=== PATIENT | female | born 1960 | race Asian ===

== ENCOUNTER → 2017-05-11 | Outpatient (CLI) | payer BC ==
[2017-05-11 11:08] LABS: BASOPHILS % 0.7 % (0.0-2.0); EOSINOPHILS % 0.8 % (0.0-5.0); HEMATOCRIT. 38.8 % (36.0-48.0); HEMOGLOBIN. 12.8 g/dL (12.0-16.0); LYMPHOCYTES % 26.6 % (20.0-50.0); MEAN CORPUSCULAR HEMOGLOBIN 29.5 pg (28.0-32.0); MEAN CORPUSCULAR VOLUME 89.2 fL (81.0-99.0); MEAN PLATELET VOLUME 7.1 fl (7.4-10.4); MONOCYTES % 6.4 % (2.0-8.0); NEUTROPHILS % 65.5 % (40.0-76.0); PLATELET 224 x1000/uL (130-400); RED BLOOD CELL COUNT 4.34 mill/uL (4.2-5.4); RED CELL DISTRIBUTION WIDTH 13.3 % (11.6-14.6)
[2017-05-11 11:36] LABS: CARBON DIOXIDE 29 mEq/L (21-32); CHLORIDE 107 mEq/L (98-107); HDL CHOLESTEROL 98 mg/dL (40-59); LDL CHOLESTEROL 117 mg/dL (5-100); PHOSPHORUS 3.1 mg/dL (2.5-4.9); T4 FREE 1.23 ng/dL (0.76-1.46)
[2017-05-11 11:43] LABS: GLUCOSE URINE NEGATIVE (NEGATIVE); KETONES URINE NEGATIVE (NEGATIVE); LEUKOCYTE ESTERASE URINE TRACE (NEGATIVE); NITRITE URINE NEGATIVE (NEGATIVE); OCCULT BLOOD URINE NEGATIVE (NEGATIVE); PH URINE 5.5 (4.5-8.0); PROTEIN URINE NEGATIVE (NEGATIVE); SPECIFIC GRAVITY URINE 1.012 (1.005-1.030); UROBILINOGEN URINE 0.2 E.U./dL (0.2-1.0)
[2017-05-11 11:49] LABS: CLARITY URINE CLEAR (CLEAR); COLOR URINE YELLOW (YELLOW)
[2017-05-12 13:07] LABS: CANCER ANTIGEN 125 14.2 U/mL (0.0-38.1)
== END | disposition home or self-care (01) ==
LOC: LAB 10:08
PROVIDERS: ATTEND Internal Medicine Endocrinology, Diabetes & Metabolism
DX: M85.80 Other specified disorders of bone density and structure, unspecified site (principal); E78.5 Hyperlipidemia, unspecified; N83.209 Unspecified ovarian cyst, unspecified side; R73.9 Hyperglycemia, unspecified
CPT/HCPCS: 36415; 80053; 80061; 81001; 82306; 82378; 83036; 83735; 83970; 84100; 84439; 84443; 85025; 86304; 87086

== ENCOUNTER → 2017-09-29 | Outpatient (CLI) | payer BC ==
[2017-09-29 16:59] LABS: CLARITY URINE CLOUDY (CLEAR); COLOR URINE YELLOW (YELLOW); GLUCOSE URINE NEGATIVE (NEGATIVE); KETONES URINE NEGATIVE (NEGATIVE); LEUKOCYTE ESTERASE URINE TRACE (NEGATIVE); NITRITE URINE NEGATIVE (NEGATIVE); OCCULT BLOOD URINE TRACE (NEGATIVE); PH URINE 7.5 (4.5-8.0); PROTEIN URINE NEGATIVE (NEGATIVE); SPECIFIC GRAVITY URINE 1.012 (1.005-1.030); UROBILINOGEN URINE 0.2 E.U./dL (0.2-1.0)
== END | disposition home or self-care (01) ==
LOC: LAB 16:34
PROVIDERS: ATTEND Internal Medicine Endocrinology, Diabetes & Metabolism
DX: N39.0 Urinary tract infection, site not specified (principal)
CPT/HCPCS: 81001; 87086; 87186

== ENCOUNTER → 2017-12-26 | Outpatient (CLI) | payer BC ==
[2017-12-26 09:17] LABS: BASOPHILS % 0.7 % (0.0-2.0); EOSINOPHILS % 0.5 % (0.0-5.0); HEMOGLOBIN. 13.9 g/dL (12.0-16.0); LYMPHOCYTES % 23.6 % (20.0-50.0); MEAN CORPUSCULAR HEMOGLOBIN 29.6 pg (28.0-32.0); MEAN CORPUSCULAR VOLUME 89.4 fL (81.0-99.0); MEAN PLATELET VOLUME 7.2 fl (7.4-10.4); MONOCYTES % 5.4 % (2.0-8.0); NEUTROPHILS % 69.8 % (40.0-76.0); PLATELET 273 x1000/uL (130-400); RED CELL DISTRIBUTION WIDTH 13.2 % (11.6-14.6)
[2017-12-26 09:49] LABS: CHLORIDE 105 mEq/L (98-107); HDL CHOLESTEROL 85 mg/dL (40-59); LDL CHOLESTEROL 110 mg/dL (5-100); PHOSPHORUS 4.4 mg/dL (2.5-4.9); T4 FREE 1.15 ng/dL (0.76-1.46)
[2017-12-27 09:07] LABS: VITAMIN D 25-OH 35.9 ng/mL (30.0-100.0)
[2017-12-27 13:11] LABS: CANCER ANTIGEN 125 15.7 U/mL (0.0-38.1)
== END | disposition home or self-care (01) ==
LOC: LAB 06:04
PROVIDERS: ATTEND Internal Medicine Endocrinology, Diabetes & Metabolism
DX: E78.5 Hyperlipidemia, unspecified (principal); R73.9 Hyperglycemia, unspecified; N83.299 Other ovarian cyst, unspecified side; M85.88 Other specified disorders of bone density and structure, other site
CPT/HCPCS: 36415; 80061; 82306; 82378; 83036; 83735; 83970; 84100; 84439; 84443; 86304

== ENCOUNTER → 2018-01-05 | Outpatient (CLI) | payer BC ==
[2018-01-05 13:01] LABS: BASOPHILS % 0.4 % (0.0-2.0); EOSINOPHILS % 0.3 % (0.0-5.0); HEMATOCRIT. 41.6 % (36.0-48.0); MEAN CORPUSCULAR HEMOGLOBIN 30.2 pg (28.0-32.0); MEAN CORPUSCULAR VOLUME 89.4 fL (81.0-99.0); MEAN PLATELET VOLUME 7.5 fl (7.4-10.4); MONOCYTES % 7.6 % (2.0-8.0); NEUTROPHILS % 74.7 % (40.0-76.0); PLATELET 280 x1000/uL (130-400); RED BLOOD CELL COUNT 4.65 mill/uL (4.2-5.4); RED CELL DISTRIBUTION WIDTH 13.5 % (11.6-14.6)
[2018-01-05 13:18] LABS: CHLORIDE 106 mEq/L (98-107)
== END | disposition home or self-care (01) ==
LOC: LAB 12:28
PROVIDERS: ATTEND Internal Medicine Gastroenterology
DX: K62.5 Hemorrhage of anus and rectum (principal)
CPT/HCPCS: 36415; 80053; 85025; 87015; 87045; 87427; 87449; 89055

== ENCOUNTER → 2019-02-11 | Outpatient (CLI) | payer BC ==
[2019-02-11 09:01] LABS: EOSINOPHILS % 0.6 % (0.0-5.0); HEMATOCRIT. 41.9 % (36.0-48.0); HEMOGLOBIN. 13.7 g/dL (12.0-16.0); LYMPHOCYTES % 28.5 % (20.0-50.0); MEAN CORPUSCULAR HEMOGLOBIN 29.9 pg (28.0-32.0); MEAN CORPUSCULAR VOLUME 91.7 fL (81.0-99.0); MEAN PLATELET VOLUME 7.3 fl (7.4-10.4); NEUTROPHILS % 63.9 % (40.0-76.0); PLATELET 259 x1000/uL (130-400); RED BLOOD CELL COUNT 4.57 mill/uL (4.2-5.4); RED CELL DISTRIBUTION WIDTH 13.5 % (11.6-14.6)
[2019-02-11 09:03] LABS: CHLORIDE 109 mEq/L (98-107)
[2019-02-11 09:10] LABS: PHOSPHORUS 3.5 mg/dL (2.5-4.9)
[2019-02-11 09:11] LABS: LDL CHOLESTEROL 109 mg/dL (5-100)
[2019-02-11 09:12] LABS: HDL CHOLESTEROL 84 mg/dL (40-59)
[2019-02-12 13:59] LABS: A/G RATIO 1.2 (0.7-1.7); ALPHA-1-GLOBULIN 0.2 g/dL (0.0-0.4); ALPHA-2-GLOBULIN 0.7 g/dL (0.4-1.0); BETA GLOBULIN 1.1 g/dL (0.7-1.3); CANCER ANTIGEN 125 12.6 U/mL (0.0-38.1); GAMMA GLOBULINS 1.3 g/dL (0.4-1.8); GLOBULIN TOTAL 3.3 g/dL (2.2-3.9); M-SPIKE Not Observed g/dL (Not Observed); TOTAL PROTEIN SERUM 7.3 g/dL (6.0-8.5)
== END | disposition home or self-care (01) ==
LOC: LAB 08:02
PROVIDERS: ATTEND Internal Medicine Endocrinology, Diabetes & Metabolism
DX: E78.5 Hyperlipidemia, unspecified (principal); R73.9 Hyperglycemia, unspecified; M85.88 Other specified disorders of bone density and structure, other site
CPT/HCPCS: 36415; 80061; 83036; 83970; 84100; 84155; 84165; 84439; 84443; 86304

== ENCOUNTER → 2020-09-17 | Outpatient (CLI) | payer BC | END | disposition home or self-care (01) | LOC: RAD 17:21 | PROVIDERS: ATTEND Internal Medicine Endocrinology, Diabetes & Metabolism | DX: R07.9 Chest pain, unspecified (principal); R07.81 Pleurodynia | CPT/HCPCS: 71046; 71110 ==

== ENCOUNTER → 2020-09-18 | Outpatient (CLI) | payer BC ==
[2020-09-18 14:01] LABS: CLARITY URINE CLEAR (CLEAR); COLOR URINE YELLOW (YELLOW); KETONES URINE NEGATIVE (NEGATIVE); LEUKOCYTE ESTERASE URINE TRACE (NEGATIVE); NITRITE URINE NEGATIVE (NEGATIVE); OCCULT BLOOD URINE NEGATIVE (NEGATIVE); PH URINE 5.5 (4.5-8.0); PROTEIN URINE NEGATIVE (NEGATIVE); SPECIFIC GRAVITY URINE 1.009 (1.005-1.030); UROBILINOGEN URINE 0.2 E.U./dL (0.2-1.0)
[2020-09-18 14:16] LABS: BASOPHILS % 0.6 % (0.0-2.0); EOSINOPHILS % 0.7 % (0.0-5.0); HEMATOCRIT. 38.4 % (36.0-48.0); HEMOGLOBIN. 12.9 g/dL (12.0-16.0); LYMPHOCYTES % 24.6 % (20.0-50.0); MEAN CORPUSCULAR HEMOGLOBIN 30.1 pg (28.0-32.0); MEAN CORPUSCULAR VOLUME 89.5 fL (81.0-99.0); MEAN PLATELET VOLUME 7.3 fl (7.4-10.4); MONOCYTES % 7.2 % (2.0-8.0); NEUTROPHILS % 66.9 % (40.0-76.0); PLATELET 264 x1000/uL (130-400); RED BLOOD CELL COUNT 4.29 mill/uL (4.2-5.4); RED CELL DISTRIBUTION WIDTH 13.8 % (11.6-14.6)
[2020-09-18 14:24] LABS: CHLORIDE 106 mEq/L (98-107)
[2020-09-18 14:31] LABS: PHOSPHORUS 3.4 mg/dL (2.5-4.9)
[2020-09-18 14:32] LABS: LDL CHOLESTEROL 117 mg/dL (5-100)
[2020-09-18 14:34] LABS: HDL CHOLESTEROL 95 mg/dL (40-59); T4 FREE 1.27 ng/dL (0.76-1.46)
[2020-09-18 15:15] LABS: FOLIC ACID (FOLATE) SERUM >20 ng/mL ng/mL (>5.38)
[2020-09-18 16:01] LABS: VITAMIN B12 SERUM 470 pg/mL (211-911)
[2020-09-20 10:07] LABS: RF PROFILE 11.2 IU/mL (0.0-13.9)
== END | disposition home or self-care (01) ==
LOC: LAB 13:53
PROVIDERS: ATTEND Internal Medicine Endocrinology, Diabetes & Metabolism
DX: E78.5 Hyperlipidemia, unspecified (principal); R73.9 Hyperglycemia, unspecified; R07.9 Chest pain, unspecified; M85.80 Other specified disorders of bone density and structure, unspecified site
CPT/HCPCS: 36415; 80053; 80061; 81003; 82306; 82607; 82746; 83036; 83735; 83921; 83970; 84100; 84439; 84443; 85025; 85651; 86038; 86200; 86431; 93005

== ENCOUNTER → 2021-05-20 | Outpatient (CLI) | payer BC | END | disposition home or self-care (01) | LOC: MAMMO 10:24 | PROVIDERS: ATTEND Internal Medicine Endocrinology, Diabetes & Metabolism | DX: Z12.31 Encounter for screening mammogram for malignant neoplasm of breast (principal); N64.89 Other specified disorders of breast; M81.0 Age-related osteoporosis without current pathological fracture | CPT/HCPCS: 77063; 77067; 77080 ==

== ENCOUNTER → 2021-08-11 | Outpatient (CLI) | payer BC ==
[2021-08-11 07:35] LABS: EOSINOPHILS % 1.1 % (0.0-5.0); HEMATOCRIT. 40.3 % (36.0-48.0); HEMOGLOBIN. 13.4 g/dL (12.0-16.0); LYMPHOCYTES % 26.1 % (20.0-50.0); MEAN PLATELET VOLUME 7.2 fl (7.4-10.4); MONOCYTES % 6.9 % (2.0-8.0); NEUTROPHILS % 64.9 % (40.0-76.0); PLATELET 322 x1000/uL (130-400); RED BLOOD CELL COUNT 4.48 mill/uL (4.2-5.4); RED CELL DISTRIBUTION WIDTH 13.4 % (11.6-14.6)
[2021-08-11 07:36] LABS: CHLORIDE 109 mEq/L (98-107)
[2021-08-11 07:43] LABS: PHOSPHORUS 3.1 mg/dL (2.5-4.9)
[2021-08-11 07:44] LABS: HDL CHOLESTEROL 95 mg/dL (40-59); LDL CHOLESTEROL 127 mg/dL (5-100)
[2021-08-11 07:45] LABS: T4 FREE 1.25 ng/dL (0.76-1.46)
[2021-08-11 07:52] LABS: FOLIC ACID (FOLATE) SERUM 17.7 ng/mL (>5.38)
[2021-08-11 10:41] LABS: CLARITY URINE CLEAR (CLEAR); COLOR URINE YELLOW (YELLOW); KETONES URINE NEGATIVE (NEGATIVE); LEUKOCYTE ESTERASE URINE TRACE (NEGATIVE); NITRITE URINE NEGATIVE (NEGATIVE); OCCULT BLOOD URINE NEGATIVE (NEGATIVE); PH URINE 5.5 (4.5-8.0); PROTEIN URINE NEGATIVE (NEGATIVE); SPECIFIC GRAVITY URINE 1.019 (1.005-1.030); UROBILINOGEN URINE 0.2 E.U./dL (0.2-1.0)
[2021-08-12 09:10] LABS: CANCER ANTIGEN 125 14.6 U/mL (0.0-38.1)
[2021-08-12 10:06] LABS: ANTI-NUCLEAR ANTIBODIES DIRECT Negative (Negative); VITAMIN D 25-OH 37.7 ng/mL (30.0-100.0)
[2021-08-12 13:10] LABS: ALPHA-1-GLOBULIN 0.3 g/dL (0.0-0.4); ALPHA-2-GLOBULIN 0.9 g/dL (0.4-1.0); BETA GLOBULIN 1.3 g/dL (0.7-1.3); GAMMA GLOBULINS 1.7 g/dL (0.4-1.8); GLOBULIN TOTAL 4.1 g/dL (2.2-3.9); M-SPIKE Not Observed g/dL (Not Observed); TOTAL PROTEIN SERUM 8.1 g/dL (6.0-8.5)
[2021-08-15 15:06] LABS: METHYLMALONIC ACID 101 nmol/L (0-378)
== END | disposition home or self-care (01) ==
LOC: LAB 06:51
PROVIDERS: ATTEND Internal Medicine Endocrinology, Diabetes & Metabolism
DX: E78.5 Hyperlipidemia, unspecified (principal); M85.80 Other specified disorders of bone density and structure, unspecified site; R33.9 Retention of urine, unspecified; M25.50 Pain in unspecified joint
CPT/HCPCS: 36415; 80053; 80061; 81003; 82306; 82607; 82746; 83036; 83735; 83921; 83970; 84100; 84155; 84165; 84439; 84443; 84550; 85025; 85651; 86038; 86304; 86430

== ENCOUNTER → 2022-01-31 | Outpatient (CLI) | payer BC | END | disposition home or self-care (01) | LOC: RAD 13:53 | PROVIDERS: ATTEND Internal Medicine Endocrinology, Diabetes & Metabolism | DX: M25.532 Pain in left wrist (principal); M25.542 Pain in joints of left hand | CPT/HCPCS: 73110; 73130 ==

== ENCOUNTER → 2023-03-13 | Outpatient (CLI) | payer BC ==
[2023-03-13 09:14] LABS: CHLORIDE 107 mEq/L (98-107)
[2023-03-13 09:16] LABS: CLARITY URINE CLEAR (CLEAR); COLOR URINE YELLOW (YELLOW); KETONES URINE NEGATIVE (NEGATIVE); LEUKOCYTE ESTERASE URINE NEGATIVE (NEGATIVE); NITRITE URINE NEGATIVE (NEGATIVE); OCCULT BLOOD URINE NEGATIVE (NEGATIVE); PROTEIN URINE NEGATIVE (NEGATIVE); UROBILINOGEN URINE 0.2 E.U./dL (0.2-1.0)
[2023-03-13 09:31] LABS: CREATINE KINASE 133 IU/L (26-192); HDL CHOLESTEROL 91 mg/dL (40-59); LDL CHOLESTEROL 127 mg/dL (5-100); PHOSPHORUS 2.9 mg/dL (2.5-4.9); T4 FREE 1.17 ng/dL (0.76-1.46)
[2023-03-13 09:44] LABS: FOLIC ACID (FOLATE) SERUM 16.5 ng/mL (>5.38)
[2023-03-13 10:08] LABS: BASOPHILS % 0.7 % (0.0-2.0); EOSINOPHILS % 0.5 % (0.0-5.0); HEMATOCRIT. 37.4 % (36.0-48.0); HEMOGLOBIN. 12.6 g/dL (12.0-16.0); LYMPHOCYTES % 26.3 % (20.0-50.0); MEAN CORPUSCULAR HEMOGLOBIN 29.8 pg (28.0-32.0); MEAN CORPUSCULAR VOLUME 88.6 fL (81.0-99.0); MEAN PLATELET VOLUME 7.6 fl (7.4-10.4); MONOCYTES % 5.1 % (2.0-8.0); NEUTROPHILS % 67.4 % (40.0-76.0); PLATELET 303 x1000/uL (130-400); RED BLOOD CELL COUNT 4.22 mill/uL (4.2-5.4)
[2023-03-13 14:07] LABS: CARCINO EMBRYONIC ANTIGEN 1.4 ng/ml
[2023-03-14 09:11] LABS: ANTI-NUCLEAR ANTIBODIES DIRECT Negative (Negative); CANCER ANTIGEN 125 15.8 U/mL (0.0-38.1); RF PROFILE < 10.0 IU/mL (<14.0)
[2023-03-15 19:08] LABS: CCP IgG/IgA PROFILE 5 units (0-19)
[2023-03-17 04:07] LABS: METHYLMALONIC ACID 97 nmol/L (0-378)
== END | disposition home or self-care (01) ==
LOC: LAB 08:11
PROVIDERS: ATTEND Internal Medicine Endocrinology, Diabetes & Metabolism
DX: R00.0 Tachycardia, unspecified (principal); R73.9 Hyperglycemia, unspecified; M85.80 Other specified disorders of bone density and structure, unspecified site; N83.209 Unspecified ovarian cyst, unspecified side
CPT/HCPCS: 36415; 80053; 80061; 81003; 82378; 82550; 82607; 82746; 83036; 83735; 83921; 83970; 84100; 84439; 84443; 84550; 85025; 85651; 86038; 86200; 86304; 86305; 86431

== ENCOUNTER → 2023-06-20 | Outpatient (CLI) | payer BC | END | disposition home or self-care (01) | LOC: MAMMO 08:01 | PROVIDERS: ATTEND Internal Medicine Endocrinology, Diabetes & Metabolism | DX: Z12.31 Encounter for screening mammogram for malignant neoplasm of breast (principal); M81.0 Age-related osteoporosis without current pathological fracture | CPT/HCPCS: 77063; 77067; 77080 ==

== ENCOUNTER → 2023-10-10 | Outpatient (CLI) | payer BC | END | disposition home or self-care (01) | LOC: US 06:10 | PROVIDERS: ATTEND Obstetrics & Gynecology Obstetrics | DX: R92.30 Dense breasts, unspecified (principal) | CPT/HCPCS: 76642 ==

== ENCOUNTER → 2024-01-09 | Outpatient (CLI) | payer BC ==
[2024-01-09 09:50] LABS: BASOPHILS % 0.5 % (0.0-2.0); EOSINOPHILS % 0.4 % (0.0-5.0); HEMATOCRIT. 40.4 % (36.0-48.0); HEMOGLOBIN. 13.2 g/dL (12.0-16.0); LYMPHOCYTES % 21.2 % (20.0-50.0); MEAN CORPUSCULAR HEMOGLOBIN 29.8 pg (28.0-32.0); MEAN CORPUSCULAR HGB CONC 32.6 g/dL (31.0-37.0); MEAN CORPUSCULAR VOLUME 91.3 fL (81.0-99.0); MEAN PLATELET VOLUME 7.2 fl (7.4-10.4); NEUTROPHILS % 72.9 % (40.0-76.0); PLATELET 298 x1000/uL (130-400); RED BLOOD CELL COUNT 4.42 mill/uL (4.2-5.4); RED CELL DISTRIBUTION WIDTH 13.7 % (11.6-14.6); WHITE BLOOD COUNT 6.6 x1000/uL (4.5-11.0)
[2024-01-09 10:37] LABS: ALANINE AMINOTRANSFERASE 15 IU/L (10-49); ALBUMIN 4.6 g/dL (3.2-4.8); ASPARTATE AMINOTRANSFERASE 20 IU/L (<34); BILIRUBIN TOTAL 0.4 mg/dL (0.1-1.0); CALCIUM 9.1 mg/dL (8.7-10.4); CARBON DIOXIDE 27 mEq/L (21-32); CHLORIDE 107 mEq/L (98-107); CHOLESTEROL 178 mg/dL (<200); CREATININE 0.6 mg/dL (0.6-1.0); GLUCOSE 102 mg/dL (70-105); HDL CHOLESTEROL 79 mg/dL (>65); LDL CHOLESTEROL 92 mg/dL (5-100); PHOSPHORUS 3.5 mg/dL (2.5-4.9); POTASSIUM 4.4 mEq/L (3.5-5.1); SODIUM 140 mEq/L (136-145); TRIGLYCERIDE 67 mg/dL (0-150); UREA NITROGEN BLOOD 11 mg/dL (9-23); URIC ACID 4.4 mg/dL (3.1-7.8)
== END | disposition home or self-care (01) ==
LOC: LAB 09:15
PROVIDERS: ATTEND Internal Medicine Endocrinology, Diabetes & Metabolism
DX: R73.9 Hyperglycemia, unspecified (principal); E78.00 Pure hypercholesterolemia, unspecified; M85.80 Other specified disorders of bone density and structure, unspecified site
CPT/HCPCS: 36415; 80053; 80061; 82306; 83036; 83970; 84100; 84550; 85025

== ENCOUNTER → 2024-05-17 | Outpatient (CLI) | payer BC ==
[2024-05-17 13:57] LABS: CLARITY URINE CLOUDY (CLEAR); COLOR URINE YELLOW (YELLOW); GLUCOSE URINE NEGATIVE (NEGATIVE); KETONES URINE NEGATIVE (NEGATIVE); LEUKOCYTE ESTERASE URINE 2+ (NEGATIVE); NITRITE URINE POSITIVE (NEGATIVE); OCCULT BLOOD URINE 3+ (NEGATIVE); PH URINE 5.5 (4.5-8.0); PROTEIN URINE 2+ (NEGATIVE); SPECIFIC GRAVITY URINE 1.021 (1.005-1.030)
[2024-05-17 14:06] LABS: BACTERIA URINE 1+; RBC URINE 50-100 /hpf (0-2); WBC URINE TNTC /hpf (0-2)
[2024-05-17 14:07] LABS: SQUAMOUS EPITHELIAL CELL URINE FEW /lpf (RARE/1+); YEAST URINE NONE SEEN
== END | disposition home or self-care (01) ==
LOC: LAB 13:35
PROVIDERS: ATTEND Internal Medicine Endocrinology, Diabetes & Metabolism
DX: N39.0 Urinary tract infection, site not specified (principal)
CPT/HCPCS: 81003; 87077; 87186

== ENCOUNTER → 2024-05-20 | Outpatient (CLI) | payer BC ==
[2024-05-20 12:53] LABS: BASOPHILS % 0.8 % (0.0-2.0); EOSINOPHILS % 1.4 % (0.0-5.0); HEMATOCRIT. 39.4 % (36.0-48.0); HEMOGLOBIN. 12.9 g/dL (12.0-16.0); LYMPHOCYTES % 32.9 % (20.0-50.0); MEAN CORPUSCULAR HEMOGLOBIN 29.6 pg (28.0-32.0); MEAN CORPUSCULAR HGB CONC 32.8 g/dL (31.0-37.0); MEAN CORPUSCULAR VOLUME 90.4 fL (81.0-99.0); MEAN PLATELET VOLUME 6.9 fl (7.4-10.4); MONOCYTES % 8.4 % (2.0-8.0); NEUTROPHILS % 56.5 % (40.0-76.0); PLATELET 339 x1000/uL (130-400); RED BLOOD CELL COUNT 4.35 mill/uL (4.2-5.4); RED CELL DISTRIBUTION WIDTH 13.6 % (11.6-14.6); WHITE BLOOD COUNT 4.9 x1000/uL (4.5-11.0)
[2024-05-20 13:01] LABS: CHLORIDE 105 mEq/L (98-107); POTASSIUM 4.4 mEq/L (3.5-5.1); SODIUM 142 mEq/L (136-145)
[2024-05-20 13:02] LABS: CALCIUM 9.3 mg/dL (8.7-10.4); CARBON DIOXIDE 29 mEq/L (21-32)
[2024-05-20 13:06] LABS: URIC ACID 4.8 mg/dL (3.1-7.8)
[2024-05-20 13:07] LABS: CREATININE 0.7 mg/dL (0.6-1.0); GLUCOSE 107 mg/dL (70-105); TRIGLYCERIDE 69 mg/dL (0-150); UREA NITROGEN BLOOD 9 mg/dL (9-23)
[2024-05-20 13:08] LABS: LDL CHOLESTEROL 97 mg/dL (5-100)
[2024-05-20 13:09] LABS: ALANINE AMINOTRANSFERASE 38 IU/L (10-49); ALBUMIN 4.5 g/dL (3.2-4.8); ASPARTATE AMINOTRANSFERASE 32 IU/L (<34); BILIRUBIN TOTAL 0.4 mg/dL (0.1-1.0); CHOLESTEROL 182 mg/dL (<200); HDL CHOLESTEROL 76 mg/dL (>65); PROTEIN TOTAL 8.1 g/dL (6.0-8.3)
[2024-05-20 13:11] LABS: T4 FREE 1.34 ng/dL (0.89-1.76)
[2024-05-22 08:12] LABS: CANCER ANTIGEN 125 14.3 U/mL (0.0-38.1); VITAMIN D 25-OH 35.1 ng/mL (30.0-100.0)
== END | disposition home or self-care (01) ==
LOC: LAB 12:01
PROVIDERS: ATTEND Internal Medicine Endocrinology, Diabetes & Metabolism
DX: R73.9 Hyperglycemia, unspecified (principal); E78.00 Pure hypercholesterolemia, unspecified; M85.80 Other specified disorders of bone density and structure, unspecified site; N83.209 Unspecified ovarian cyst, unspecified side
CPT/HCPCS: 36415; 80053; 80061; 82306; 83036; 83970; 84439; 84443; 84550; 85025; 86304

== ENCOUNTER → 2024-07-22 | Outpatient (CLI) | payer BC ==
[2024-07-22 10:05] LABS: CHLORIDE 108 mEq/L (98-107); POTASSIUM 4.9 mEq/L (3.5-5.1); SODIUM 140 mEq/L (136-145)
[2024-07-22 10:06] LABS: CALCIUM 9.5 mg/dL (8.7-10.4); CARBON DIOXIDE 28 mEq/L (21-32)
[2024-07-22 10:11] LABS: CREATININE 0.7 mg/dL (0.6-1.0); GLUCOSE 114 mg/dL (70-105); UREA NITROGEN BLOOD 8 mg/dL (9-23)
[2024-07-22 10:13] LABS: ALANINE AMINOTRANSFERASE 22 IU/L (10-49); ALBUMIN 4.8 g/dL (3.2-4.8); ASPARTATE AMINOTRANSFERASE 22 IU/L (<34); BILIRUBIN TOTAL 0.4 mg/dL (0.1-1.0); PROTEIN TOTAL 8.6 g/dL (6.0-8.3)
== END | disposition home or self-care (01) ==
LOC: LAB 09:13
PROVIDERS: ATTEND Internal Medicine
DX: M81.0 Age-related osteoporosis without current pathological fracture (principal)
CPT/HCPCS: 36415; 80053; 82306

== ENCOUNTER → 2024-09-04 | Outpatient (CLI) | payer BC ==
[2024-09-04 13:06] LABS: BASOPHILS % 0.8 % (0.0-2.0); EOSINOPHILS % 0.6 % (0.0-5.0); HEMATOCRIT. 42.1 % (36.0-48.0); HEMOGLOBIN. 13.4 g/dL (12.0-16.0); LYMPHOCYTES % 27.8 % (20.0-50.0); MEAN CORPUSCULAR HGB CONC 31.9 g/dL (31.0-37.0); MEAN CORPUSCULAR VOLUME 91.1 fL (81.0-99.0); MEAN PLATELET VOLUME 7.1 fl (7.4-10.4); MONOCYTES % 5.9 % (2.0-8.0); NEUTROPHILS % 64.9 % (40.0-76.0); PLATELET 291 x1000/uL (130-400); RED BLOOD CELL COUNT 4.62 mill/uL (4.2-5.4); RED CELL DISTRIBUTION WIDTH 14.1 % (11.6-14.6); WHITE BLOOD COUNT 6.8 x1000/uL (4.5-11.0)
[2024-09-04 13:14] LABS: CHLORIDE 107 mEq/L (98-107); POTASSIUM 4.2 mEq/L (3.5-5.1); SODIUM 139 mEq/L (136-145)
[2024-09-04 13:15] LABS: CALCIUM 9.7 mg/dL (8.7-10.4); CARBON DIOXIDE 29 mEq/L (21-32)
[2024-09-04 13:19] LABS: URIC ACID 5.2 mg/dL (3.1-7.8)
[2024-09-04 13:20] LABS: CREATININE 0.7 mg/dL (0.6-1.0); GLUCOSE 96 mg/dL (70-105); TRIGLYCERIDE 103 mg/dL (0-150); UREA NITROGEN BLOOD 10 mg/dL (9-23)
[2024-09-04 13:21] LABS: LDL CHOLESTEROL 87 mg/dL (5-100)
[2024-09-04 13:22] LABS: ALANINE AMINOTRANSFERASE 18 IU/L (10-49); ALBUMIN 4.8 g/dL (3.2-4.8); ASPARTATE AMINOTRANSFERASE 20 IU/L (<34); BILIRUBIN TOTAL 0.5 mg/dL (0.1-1.0); CHOLESTEROL 177 mg/dL (<200); HDL CHOLESTEROL 76 mg/dL (>65); PHOSPHORUS 3.5 mg/dL (2.5-4.9); PROTEIN TOTAL 8.2 g/dL (6.0-8.3)
[2024-09-04 13:23] LABS: THYROID STIMULATING HORMONE 1.92 uIU/mL (0.55-4.78)
[2024-09-04 13:25] LABS: T4 FREE 1.18 ng/dL (0.89-1.76)
[2024-09-04 13:33] LABS: CLARITY URINE CLEAR (CLEAR); COLOR URINE YELLOW (YELLOW); GLUCOSE URINE NEGATIVE (NEGATIVE); KETONES URINE NEGATIVE (NEGATIVE); LEUKOCYTE ESTERASE URINE NEGATIVE (NEGATIVE); NITRITE URINE NEGATIVE (NEGATIVE); OCCULT BLOOD URINE NEGATIVE (NEGATIVE); PROTEIN URINE NEGATIVE (NEGATIVE); UROBILINOGEN URINE 0.2 E.U./dL (0.2-1.0)
[2024-09-06 05:10] LABS: CANCER ANTIGEN 125 14.3 U/mL (0.0-38.1); VITAMIN D 25-OH 32.9 ng/mL (30.0-100.0)
== END | disposition home or self-care (01) ==
LOC: LAB 12:35
PROVIDERS: ATTEND Internal Medicine Endocrinology, Diabetes & Metabolism
DX: R73.9 Hyperglycemia, unspecified (principal); E78.00 Pure hypercholesterolemia, unspecified; M85.80 Other specified disorders of bone density and structure, unspecified site; N83.209 Unspecified ovarian cyst, unspecified side
CPT/HCPCS: 36415; 80053; 80061; 81003; 82306; 82330; 83036; 83970; 84100; 84439; 84443; 84550; 85025; 86304

== ENCOUNTER → 2025-04-04 | Outpatient (CLI) | payer BC ==
[2025-04-04 12:06] LABS: CLARITY URINE CLOUDY (CLEAR); COLOR URINE YELLOW (YELLOW); GLUCOSE URINE NEGATIVE (NEGATIVE); KETONES URINE NEGATIVE (NEGATIVE); LEUKOCYTE ESTERASE URINE NEGATIVE (NEGATIVE); NITRITE URINE NEGATIVE (NEGATIVE); OCCULT BLOOD URINE NEGATIVE (NEGATIVE); PH URINE 6.5 (4.5-8.0); PROTEIN URINE NEGATIVE (NEGATIVE); SPECIFIC GRAVITY URINE 1.009 (1.005-1.030); UROBILINOGEN URINE 0.2 E.U./dL (0.2-1.0)
[2025-04-04 12:12] LABS: BASOPHILS % 0.4 % (0.0-2.0); EOSINOPHILS % 0.4 % (0.0-5.0); HEMATOCRIT. 39.9 % (36.0-48.0); HEMOGLOBIN. 13.3 g/dL (12.0-16.0); LYMPHOCYTES % 34.9 % (20.0-50.0); MEAN CORPUSCULAR HEMOGLOBIN 29.5 pg (28.0-32.0); MEAN CORPUSCULAR HGB CONC 33.3 g/dL (31.0-37.0); MEAN CORPUSCULAR VOLUME 88.6 fL (81.0-99.0); MEAN PLATELET VOLUME 7.2 fl (7.4-10.4); NEUTROPHILS % 58.3 % (40.0-76.0); PLATELET 317 x1000/uL (130-400); RED CELL DISTRIBUTION WIDTH 13.5 % (11.6-14.6); WHITE BLOOD COUNT 6.3 x1000/uL (4.5-11.0)
[2025-04-04 12:15] LABS: CARBON DIOXIDE 27 mEq/L (21-32); CHLORIDE 106 mEq/L (98-107); POTASSIUM 3.7 mEq/L (3.5-5.1); SODIUM 141 mEq/L (136-145)
[2025-04-04 12:16] LABS: CALCIUM 8.8 mg/dL (8.7-10.4)
[2025-04-04 12:20] LABS: CREATININE 0.6 mg/dL (0.6-1.0); GLUCOSE 103 mg/dL (70-105); URIC ACID 4.8 mg/dL (3.1-7.8)
[2025-04-04 12:21] LABS: TRIGLYCERIDE 129 mg/dL (0-150); UREA NITROGEN BLOOD 11 mg/dL (9-23)
[2025-04-04 12:22] LABS: ALANINE AMINOTRANSFERASE 34 IU/L (10-49); ALBUMIN 4.7 g/dL (3.2-4.8); ASPARTATE AMINOTRANSFERASE 20 IU/L (<34); LDL CHOLESTEROL 100 mg/dL (5-100)
[2025-04-04 12:23] LABS: BILIRUBIN TOTAL 0.5 mg/dL (0.1-1.0); CHOLESTEROL 181 mg/dL (<200); HDL CHOLESTEROL 63 mg/dL (>65); PHOSPHORUS 2.8 mg/dL (2.5-4.9)
[2025-04-04 12:25] LABS: T4 FREE 1.47 ng/dL (0.89-1.76); THYROID STIMULATING HORMONE 1.65 uIU/mL (0.55-4.78)
[2025-04-04 12:48] LABS: RBC URINE NONE SEEN /hpf (0-2); SQUAMOUS EPITHELIAL CELL URINE RARE /lpf (RARE/1+); WBC URINE 0-2 /hpf (0-2)
[2025-04-04 12:49] LABS: BACTERIA URINE NONE SEEN
[2025-04-06 13:10] LABS: CANCER ANTIGEN 125 14.3 U/mL (0.0-38.1)
[2025-04-08 04:09] LABS: VITAMIN D 25-OH 36.3 ng/mL (30.0-100.0)
== END | disposition home or self-care (01) ==
LOC: LAB 11:25
PROVIDERS: ATTEND Internal Medicine Endocrinology, Diabetes & Metabolism
DX: E78.00 Pure hypercholesterolemia, unspecified (principal); R73.9 Hyperglycemia, unspecified; N83.209 Unspecified ovarian cyst, unspecified side; M85.80 Other specified disorders of bone density and structure, unspecified site
CPT/HCPCS: 36415; 80053; 80061; 81003; 82306; 82330; 83036; 83970; 84100; 84439; 84443; 84550; 85025; 86304

== ENCOUNTER → 2025-06-13 | Outpatient (CLI) | payer BC ==
[2025-06-13 12:06] LABS: CREATININE 0.8 mg/dL (0.6-1.0)
[2025-06-13 12:07] LABS: ASPARTATE AMINOTRANSFERASE 24 IU/L (<34); PROTEIN TOTAL 8.4 g/dL (6.0-8.3); TRIGLYCERIDE 94 mg/dL (0-150); UREA NITROGEN BLOOD 13 mg/dL (9-23)
[2025-06-13 12:08] LABS: LDL CHOLESTEROL 106 mg/dL (5-100)
[2025-06-13 12:09] LABS: BILIRUBIN TOTAL 0.5 mg/dL (0.1-1.0); PHOSPHORUS 3.4 mg/dL (2.5-4.9)
[2025-06-13 12:10] LABS: T4 FREE 1.35 ng/dL (0.89-1.76)
[2025-06-13 12:36] LABS: BASOPHILS % 0.7 % (0.0-2.0); EOSINOPHILS % 0.5 % (0.0-5.0); HEMATOCRIT. 42.5 % (36.0-48.0); HEMOGLOBIN. 13.9 g/dL (12.0-16.0); LYMPHOCYTES % 29.2 % (20.0-50.0); MEAN PLATELET VOLUME 7.5 fl (7.4-10.4); MONOCYTES % 5.3 % (2.0-8.0); NEUTROPHILS % 64.3 % (40.0-76.0); PLATELET 291 x1000/uL (130-400); RED BLOOD CELL COUNT 4.63 mill/uL (4.2-5.4); RED CELL DISTRIBUTION WIDTH 13.9 % (11.6-14.6)
[2025-06-14 09:10] LABS: CANCER ANTIGEN 125 14.7 U/mL (0.0-38.1); VITAMIN D 25-OH 40.5 ng/mL (30.0-100.0)
== END | disposition home or self-care (01) ==
LOC: LAB 10:40
PROVIDERS: ATTEND Internal Medicine Endocrinology, Diabetes & Metabolism
DX: E78.00 Pure hypercholesterolemia, unspecified (principal); R73.9 Hyperglycemia, unspecified
CPT/HCPCS: 36415; 80053; 80061; 82306; 82330; 83036; 83695; 83735; 83970; 84100; 84439; 84443; 84550; 85025; 86304

== ENCOUNTER → 2025-06-13 | Outpatient (CLI) | payer BC | END | disposition home or self-care (01) | LOC: CARD 10:37 | PROVIDERS: ATTEND Specialist | DX: R00.0 Tachycardia, unspecified (principal) | CPT/HCPCS: 93306 ==

== ENCOUNTER → 2025-08-15 | Outpatient (CLI) | payer BC | END | disposition home or self-care (01) | LOC: CT 07:49 | PROVIDERS: ATTEND Specialist | DX: Z13.6 Encounter for screening for cardiovascular disorders (principal); E78.5 Hyperlipidemia, unspecified | CPT/HCPCS: 75571 ==

== ENCOUNTER → 2025-08-15 | Outpatient (CLI) | payer BC | END | disposition home or self-care (01) | LOC: US 07:57 | PROVIDERS: ATTEND Internal Medicine Endocrinology, Diabetes & Metabolism | DX: E04.0 Nontoxic diffuse goiter (principal) | CPT/HCPCS: 76536 ==

== ENCOUNTER → 2025-10-03 | Outpatient (CLI) | payer BC ==
[2025-10-03 11:27] LABS: BASOPHILS % 0.7 % (0.0-2.0); EOSINOPHILS % 0.5 % (0.0-5.0); HEMATOCRIT. 43.7 % (36.0-48.0); HEMOGLOBIN. 14.1 g/dL (12.0-16.0); LYMPHOCYTES % 30.0 % (20.0-50.0); MEAN PLATELET VOLUME 7.1 fl (7.4-10.4); MONOCYTES % 4.9 % (2.0-8.0); NEUTROPHILS % 63.9 % (40.0-76.0); PLATELET 287 x1000/uL (130-400); RED BLOOD CELL COUNT 4.78 mill/uL (4.2-5.4); RED CELL DISTRIBUTION WIDTH 13.9 % (11.6-14.6)
[2025-10-03 11:47] LABS: CREATININE 0.6 mg/dL (0.6-1.0); TRIGLYCERIDE 117 mg/dL (0-150); UREA NITROGEN BLOOD 8 mg/dL (9-23)
[2025-10-03 11:48] LABS: LDL CHOLESTEROL 105 mg/dL (5-100); PROTEIN TOTAL 8.2 g/dL (6.0-8.3)
[2025-10-03 11:49] LABS: ASPARTATE AMINOTRANSFERASE 22 IU/L (<34); BILIRUBIN TOTAL 0.5 mg/dL (0.1-1.0); PHOSPHORUS 2.6 mg/dL (2.5-4.9)
[2025-10-03 11:50] LABS: T4 FREE 1.40 ng/dL (0.89-1.76)
== END | disposition home or self-care (01) ==
LOC: LAB 10:26
PROVIDERS: ATTEND Internal Medicine Endocrinology, Diabetes & Metabolism
DX: E78.00 Pure hypercholesterolemia, unspecified (principal); N83.299 Other ovarian cyst, unspecified side; R73.9 Hyperglycemia, unspecified
CPT/HCPCS: 36415; 80053; 80061; 82306; 83036; 83735; 83970; 84100; 84439; 84443; 85025; 86304